=== PATIENT | male | born 1960 | race Caucasian/White ===

== ENCOUNTER 2022-08-17 08:05 | Emergency (ER) | payer SELFPAY ==
[~2022-08-17] VITALS: Ht 180.3 cm; Wt 86.2 kg
[2022-08-17 08:13] VITALS: BP_SYST 143
--- NOTE | 2022-08-17 09:00 | NUR ---
MSE BY MD CRUM IN TRIAGE.
[2022-08-17] MEDS ORDERED: IBUP-1971 PO (09:13)
[2022-08-17] MEDS ORDERED: HYDR-3917 PO ×2 (09:13→09:16)
[2022-08-17 09:23] VITALS: BP_SYST 137
--- NOTE | 2022-08-17 09:23 | NUR ---
Patient given written and verbal discharge instructions and verbalizes understanding. ER MD discussed with patient the results and treatment provided. Patient in stable condition. ID arm band removed. IV catheter removed intact and dressing applied, no active bleeding. Rx of IBUPROFEN AND NORCO given. Patient educated on pain management and to follow up with PMD. Pain Scale 2/10. Opportunity for questions provided and answered. Medication side effect fact sheet provided. SLING TO LEFT ARM PLACED BY CHELO ROJAS.
== END 2022-08-17 09:23 | disposition home or self-care (01) ==
LOC: SED 08:05
DX: S43.102A Unspecified dislocation of left acromioclavicular joint, initial encounter (principal); Z79.899 Other long term (current) drug therapy; V18.0XXA Pedal cycle driver injured in noncollision transport accident in nontraffic accident, initial encounter; Y93.89 Activity, other specified; Y92.89 Other specified places as the place of occurrence of the external cause; Y99.8 Other external cause status
CPT/HCPCS: 73030; 99283